=== PATIENT | male | born 1990 | race African-American/Black ===

== ENCOUNTER 2021-02-09 17:03 | Emergency (ER) | payer OTHER ==
[~2021-02-09] VITALS: Ht 162.6 cm; Wt 74.4 kg
[2021-02-09] MEDS ORDERED: CIPRO500 MG PO (17:56)
[2021-02-09] MEDS ORDERED: SILVER SULFADIA50 GM TOP (17:56)
[2021-02-09] MEDS ORDERED: DICLOFENAC SODI75 MG PO (17:56)
== END 2021-02-09 18:00 | disposition home or self-care (01) ==
LOC: ER 17:03
DX: T20.20XA Burn of second degree of head, face, and neck, unspecified site, initial encounter (principal); X17.XXXA Contact with hot engines, machinery and tools, initial encounter; Y93.89 Activity, other specified; Y92.89 Other specified places as the place of occurrence of the external cause